=== PATIENT | female | born 1960 | race Caucasian/White ===

== ENCOUNTER 2017-11-06 22:22 | Emergency (ER) | payer MEDICARE, SELFPAY ==
[2017-11-06 22:23] VITALS: BP 120/84; PULSE 94; RESP 16; TEMP 36.6; O2SAT 100; BMI 18.6
[2017-11-06 23:20] LABS: Absolute Lymphocyte Count 1.64 X10^3/ul (0.83-4.51); Absolute Neutrophil Count 4.2 X10^3/uL (2.0-7.7); Basophil# 0.09 X10^3/uL; Basophil% 1.3 % (0-1); Eosinophil# 0.57 X10^3/uL; Eosinophils% 7.9 % (0-5); Hematocrit 38.7 % (37-47); Hemoglobin 12.7 g/dl (12.0-15.0); Lymphocyte # 1.64 X10^3/ul (4.0); Lymphocyte % 22.9 % (19-41); Mean Corp Hgb Conc 32.8 g/gl (32-36); Mean Corpuscular Hgb 28.9 pg (27.0-32.0); Mean Corpuscular Volume 88.2 fL (81-99); Mean Platelet Vol. 9.2 fl (6.2-12.0); Monocyte# 0.66 X10^3/uL; Monocyte% 9.2 % (0-10); Neutrophil # 4.18 X10^3/uL (2.7-7.7); Neutrophil % 58.3 % (47-70); Platelet Count 465 K/mm3 (150-450); RBC Distribution Width CV 14.2 % (11.6-14.6); RBC Distribution Width SD 46.1 fl (35.1-43.9); Red Blood Count 4.39 M/mm3 (4.2-5.4); White Blood Count 7.2 K/mm3 (4.4-11.0)
[2017-11-06 23:21] LABS: POSITIVE COUNT NO; POSITIVE DIFFERENTIAL NO; POSITIVE MORPHOLOGY NO
[2017-11-06 23:23] LABS: Anion Gap 9 (5-15); BUN 23 mg/dL (7-18); BUN/Creat Ratio 27.4 RATIO (10-20); Chloride 104 mmol/L (98-107); Creatinine, Serum 0.84 mg/dL (0.55-1.02); EST Glomerular Filtration Rate 74 mL/min (>60); Est Glom Filt Rate - Afr Amer 90 mL/min (>60); Estimated Creatinine Clearance 54.86 ml/min; Glucose 98 mg/dL (74-106); Potassium 4.3 mmol/L (3.5-5.1); Sodium Level 138 mmol/L (136-145)
[2017-11-06 23:25] VITALS: RESP 18
[2017-11-06 23:43] LABS: Amphetamine Urine VISTA NEGATIVE (<1000 ng/mL); Barbiturate Urine VISTA NEGATIVE (< 200 ng/mL); Benzodiazepine Urine VISTA NEGATIVE (< 200 ng/mL); Cocaine Urine VISTA NEGATIVE (< 300 ng/mL); Ecstacy Urine VISTA NEGATIVE (< 500 ng/mL); Methadone Urine VISTA NEGATIVE (< 300 ng/mL); PCP Urine VISTA NEGATIVE (< 25 ng/mL); THC Urine VISTA POSITIVE (< 50 ng/mL); Vista UDS pH Range 6
[2017-11-07] VITALS (10 sets, daily range): BP systolic 119–126; BP diastolic 60–81; PULSE 77–87; RESP 14–19; O2SAT 95–100
--- NOTE | 2017-11-07 01:11 | ED.RN ---
made contact with everyone [facility] they are not currently accepting any new residents at this time
--- NOTE | 2017-11-07 01:16 | ED.RN ---
[facility] has a female bed available they can not accept new residents at night. Patient will need to follow up in the morning
[2017-11-07] MEDS: DiphenhydrAMINE 25 MG Capsule 50 MG PO (02:19)
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
--- NOTE | 2017-11-07 05:03 | ED.DEP ---
ED Disposition - Plan for ED Patient: Disposition: Home or Assisted Living Chief Complaint: Mental Health Instructions: ED Manic Depression Referrals: [facility],Out of [Primary Care Provider] - Counseling,Center [GROUP OF PHYSICIANS] - As Needed
[2017-11-07] MEDS: Naproxen 250 MG Tablet 500 MG PO (07:58)
== END 2017-11-07 07:59 | disposition home or self-care (01) ==
PROVIDERS: Emergency Provider Emergency Medicine
DX: F31.9 Bipolar disorder, unspecified (principal); Z59.0 Homelessness; Z91.14 Patient's other noncompliance with medication regimen; J44.9 Chronic obstructive pulmonary disease, unspecified; Z79.899 Other long term (current) drug therapy; Z85.43 Personal history of malignant neoplasm of ovary; Z87.891 Personal history of nicotine dependence
CPT/HCPCS: 80048; 80307; 80320; 85025; 99283; G0480

== ENCOUNTER 2017-11-08 20:08 | Emergency (ER) | payer MEDICARE, SELFPAY ==
[2017-11-08 20:10] VITALS: BP 97/59; PULSE 95; RESP 16; TEMP 36.7; O2SAT 98; BMI 18.2
--- NOTE | 2017-11-08 21:35 | ED.DCSUM_ITS ---
- ER Visit Summary Date of Service: 11/08/17 Chief Complaint: [] Hit left head by washer door at [facility] History of Present Illness: The patient is a 57 F [] patient reports she is a resident [facility] she was doing her laundry she opened the washer door and had been inadvertently struck her left head against the washer door this was an accident she had no LOC this occurred about 5 hours ago she had no change in vision no #6 paresthesias she has chronic pain related to arthritis, she is a prior history by her reports of substance abuse disorder denies currently Physical Examination: [] She is in no distress her HEENT exam is unremarkable is no obvious signs of trauma she points to the left side of her head but there is really no physical findings here her eyes are unremarkable her neck is unremarkable her facial bones and facial exam HEENT exam mouth exam general exam are negative the neck exam is negative chest abdomen upper and lower extremities are unremarkable she is able to walk around the emergency department her neurologic exam is negative Test Results: [] Emergency Department Course and Treatment: [] Strength the patient she is not on any anticoagulants she is not high risk for any type of head injury there is no clinical findings to suggest a HEEL SEAT [employer]TER life-threatening disorder there is no indication for brain CT she agrees she was upset with being treated with nonnarcotic medications I told her those of the protocols if she had concerns she should discuss those with the people who make the protocols, she then explained that she did not wish to return to [facility] and wanted to spend the night in the emergency department instead I told her that would not be possible that it would be appropriate to discharge her to return to her home if she wanted other living arrangements she should discuss that with [facility] personnel and/or her family service caseworker Treatment Plan: [] Disposition: [] Home stable Impression: [] Reported facial injury This note was generated with [employer] software. It may contain incorrect words, spelling, and punctuation that were not noted in review of the chart prior to signing ED Disposition - Plan for ED Patient: Chief Complaint: Head Injury Referrals: [facility] Doctor,Out of [Primary Care Provider] -
--- NOTE | 2017-11-08 21:35 | ED.DEP ---
ED Disposition - Plan for ED Patient: Chief Complaint: Head Injury Instructions: ED Contusion Face, ED Head Injury Closed Referrals: [facility] Doctor,Out of [Primary Care Provider] -
[2017-11-08] MEDS: Acetaminophen 325 MG Tablet 650 MG PO (21:50)
[2017-11-08 22:08] VITALS: PULSE 90; RESP 14; O2SAT 99
== END 2017-11-08 22:09 | disposition home or self-care (01) ==
PROVIDERS: Emergency Provider Emergency Medicine
DX: S09.90XA Unspecified injury of head, initial encounter (principal); W22.8XXA Striking against or struck by other objects, initial encounter; Y93.E2 Activity, laundry; Y92.9 Unspecified place or not applicable; Y99.9 Unspecified external cause status; M19.90 Unspecified osteoarthritis, unspecified site; G89.29 Other chronic pain; Z79.899 Other long term (current) drug therapy
CPT/HCPCS: 99282

== ENCOUNTER 2017-11-17 20:15 | Emergency (ER) | payer MEDICARE, SELFPAY ==
[2017-11-17 20:17] VITALS: BP 161/96; BP 161/98; PULSE 120; RESP 15; RESP 24; TEMP 36.3; O2SAT 98; BMI 21.3
[2017-11-17 20:50] VITALS: BP 115/96; PULSE 92; RESP 17; O2SAT 95
--- NOTE | 2017-11-17 20:50 | ED.VISSUMM ---
- ER Visit Summary Date of Service: 11/17/17 Chief Complaint: Shortness of breath History of Present Illness: The patient is a 57 F who presents with shortness of breath. She has a history of COPD asthma and seasonal allergies. She does continue to smoke. She states that she stays at the [facility] [employer] and people do not cover their cough. She reports about 1 week of an upper respiratory infection with congestion rhinorrhea increased cough and sputum increased wheezing. She was seen at [facility] recently and prescribed prednisone and doxycycline. She was able to get the prednisone filled. However she states the pharmacy lost my prescription for her doxycycline and she has been unable to fill this. She states she is basically here to get a new prescription for antibiotics. Physical Examination: Afebrile heart rate initially 120 it is 102 at the time my evaluation No distress able to speak in full sentences no retractions or increased work of breathing Scattered wheezing Heart is regular Abdomen is soft nontender to palpation Test Results: Not indicated Emergency Department Course and Treatment: History and examination is consistent with a COPD exacerbation. She is currently on prednisone. She is given her first dose of doxycycline and then albuterol and Atrovent aerosol here. She was given a prescription for doxycycline and discharged home. Treatment Plan: [] Disposition: Discharge Impression: COPD exacerbation This note was generated with [employer] dictation software. It may contain incorrect words, spelling, and punctuation that were not noted in review of the chart prior to signing ED Disposition - Plan for ED Patient: Chief Complaint: Shortness of Breath Referrals: NOT,DEFINED [Primary Care Provider] -
--- NOTE | 2017-11-17 20:54 | ED.DEP ---
ED Disposition - Plan for ED Patient: Chief Complaint: Shortness of Breath Instructions: ED COPD Flare Prescriptions: Doxycycline Monohydrate 100 mg PO BID #20 cap Referrals: NOT,DEFINED [Primary Care Provider] -
[2017-11-17 21:01] VITALS: O2SAT 98
[2017-11-17] MEDS: Doxycycline 100 MG CAPSULE PO (21:04)
[2017-11-17] MEDS: Ipratropium/Albuterol Sulfate 3 ML AMPUL.NEB INHALATION (21:17)
[2017-11-17 21:18] VITALS: PULSE 98; RESP 16
== END 2017-11-17 21:33 | disposition home or self-care (01) ==
PROVIDERS: Emergency Provider Emergency Medicine
DX: J44.1 Chronic obstructive pulmonary disease with (acute) exacerbation (principal); F31.9 Bipolar disorder, unspecified; F17.200 Nicotine dependence, unspecified, uncomplicated; Z85.43 Personal history of malignant neoplasm of ovary; Z79.899 Other long term (current) drug therapy
CPT/HCPCS: 94640; 99283

== ENCOUNTER 2017-11-20 22:01 | Emergency (ER) | payer MEDICARE, SELFPAY ==
[2017-11-20 22:02] VITALS: BP 161/90; PULSE 105; RESP 12; TEMP 36.2; O2SAT 100; BMI 19.1
[2017-11-20 22:33] LABS: Absolute Neutrophil Count 7.5 X10^3/uL (2.0-7.7); Basophil# 0.07 X10^3/uL; Basophil% 0.6 % (0-1); Eosinophil# 0.63 X10^3/uL; Hematocrit 42.9 % (37-47); Hemoglobin 14.5 g/dl (12.0-15.0); Lymphocyte % 25.3 % (19-41); Mean Corp Hgb Conc 33.8 g/gl (32-36); Mean Corpuscular Hgb 29.8 pg (27.0-32.0); Mean Corpuscular Volume 88.3 fL (81-99); Mean Platelet Vol. 9.1 fl (6.2-12.0); Monocyte# 1.08 X10^3/uL; Monocyte% 8.5 % (0-10); Neutrophil # 7.51 X10^3/uL (2.7-7.7); Neutrophil % 59.3 % (47-70); Platelet Count 445 K/mm3 (150-450); RBC Distribution Width CV 15.3 % (11.6-14.6); RBC Distribution Width SD 49.7 fl (35.1-43.9); Red Blood Count 4.86 M/mm3 (4.2-5.4); White Blood Count 12.7 K/mm3 (4.4-11.0)
[2017-11-20 22:34] LABS: Differential Indicated SCAN CRITERIA MET; POSITIVE COUNT NO; POSITIVE DIFFERENTIAL NO; POSITIVE MORPHOLOGY YES
[2017-11-20 22:44] LABS: Anion Gap 9 (5-15); BUN 26 mg/dL (7-18); Chloride 104 mmol/L (98-107); Creatinine, Serum 1.86 mg/dL (0.55-1.02); EST Glomerular Filtration Rate 30 mL/min (>60); Est Glom Filt Rate - Afr Amer 36 mL/min (>60); Glucose 102 mg/dL (74-106); Potassium 4.3 mmol/L (3.5-5.1); Sodium Level 137 mmol/L (136-145)
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
[2017-11-20] MEDS: Ipratropium/Albuterol Sulfate 3 ML AMPUL.NEB INHALATION (23:02)
[2017-11-20 23:03] VITALS: PULSE 104; RESP 20
[2017-11-20 23:12] LABS: Platelet Estimate SLT INC (ADEQ); Red Cell Morphology NORM C+C NORMAL (NORM C&C)
[2017-11-20 23:39] VITALS: RESP 15
[2017-11-21] VITALS (11 sets, daily range): BP systolic 101–145; BP diastolic 63–93; PULSE 89–102; RESP 14–24; TEMP 36.2; O2SAT 94–99
[2017-11-21] MEDS: 0.9% Normal Saline 1,000 ML 999 ML IV ×2 (00:05→01:17)
[2017-11-21 01:28] LABS: Amphetamine Urine VISTA NEGATIVE (<1000 ng/mL); Barbiturate Urine VISTA NEGATIVE (< 200 ng/mL); Benzodiazepine Urine VISTA NEGATIVE (< 200 ng/mL); Cocaine Urine VISTA NEGATIVE (< 300 ng/mL); Ecstacy Urine VISTA NEGATIVE (< 500 ng/mL); Methadone Urine VISTA NEGATIVE (< 300 ng/mL); PCP Urine VISTA NEGATIVE (< 25 ng/mL); THC Urine VISTA NEGATIVE (< 50 ng/mL); Vista UDS pH Range 7
--- NOTE | 2017-11-21 03:21 | ED.RN ---
called to give pt report. nursing staff were in report. they took my information to call me back. will try again in 20mins.
--- NOTE | 2017-11-21 04:16 | NURSING ---
TALKED TO BENJAMIN NELSON AND FERNANDEZ SHRESTHAIT AND WAS INFORMED BY BOTH TO CALL AFTER 7AM TO SEE ABOUT TRANSPORT
[2017-11-21] MEDS: Budesonide Respules 0.5 MG/2 ML AMPUL.NEB. INHALATION (06:23)
[2017-11-21] MEDS: Albuterol 2.5 MG/3 ML VIAL.NEB. INHALATION (07:56)
[2017-11-21] MEDS: Doxycycline 100 MG CAPSULE PO (09:21)
[2017-11-21] MEDS: traZODone 100 MG Tablet PO (11:29)
[2017-11-21] MEDS: Ziprasidone IM 20 MG/ML VIAL 10 MG IM (11:29)
[2017-11-21] MEDS: Naproxen 250 MG Tablet 500 MG PO (11:56)
[2017-11-21] MEDS: Fluticasone 0.05% 1 SPRAY NASAL.SRY 2 SPRAY NASAL (12:07)
[2017-11-21] MEDS: Montelukast 10 MG Tablet PO (12:07)
== END 2017-11-21 13:16 ==
PROVIDERS: Emergency Provider Emergency Medicine
DX: F31.9 Bipolar disorder, unspecified (principal); R45.851 Suicidal ideations; F10.10 Alcohol abuse, uncomplicated; R94.4 Abnormal results of kidney function studies; Z79.1 Long term (current) use of non-steroidal anti-inflammatories (NSAID); Z79.899 Other long term (current) drug therapy; Z72.0 Tobacco use; J44.9 Chronic obstructive pulmonary disease, unspecified; I10 Essential (primary) hypertension
CPT/HCPCS: 80048; 80307; 80320; 85025; 94640; 96360; 96361; 96372; 99284; J7030; A4216; G0480; J3486